=== PATIENT | female | born 1980 | race Two or more races ===

== ENCOUNTER → 2024-05-01 | Outpatient (CLI) | payer BC, SELFPAY ==
[2024-05-01 08:33] LABS: Basophils % (Auto) 1 % (0-2.5); Eosinophils # (Auto) 0.1 Thou/mm3 (0.0-0.5); Eosinophils % (Auto) 2 % (0-10); Hematocrit 39.1 % (36.0-46.0); Hemoglobin 12.9 g/dL (12.0-16.0); Immature Granulocytes % (Auto) 0 % (0-0); Immature Granulocytes Auto 0.01 Thou/mm3 (0.00-0.00); Lymphocytes # (Auto) 2.8 Thou/mm3 (1.0-4.8); Lymphocytes % (Auto) 42 % (10-50); Mean Corpuscular Volume 91 fL (80-100); Monocytes # (Auto) 0.5 Thou/mm3 (0.0-0.8); Monocytes % (Auto) 7 % (0-12); Neutrophils # (Auto) 3.3 Thou/mm3 (1.8-7.7); Neutrophils % (Auto) 49 % (37-80); Nucleated Red Blood Cell % 0 /100 WBC (0); Platelet Count 263 Thou/mm3 (140-440); RDW Standard Deviation 42.5 fL (36.4-46.3); White Blood Count 6.7 Thou/mm3 (3.6-11.0)
[2024-05-01 09:09] LABS: Glucose Estimated Average 186 mg/dL (80-131); Hemoglobin A1C 8.1 % Hgb (4.8-6.0)
[2024-05-01 09:18] LABS: Vitamin B12 548 pg/mL (211-911); Vitamin D 25 Hydroxy Total 28.8 ng/mL (7.3-40.2)
[2024-05-01 09:27] LABS: Alanine Aminotransferase 62 U/L (10-49); Albumin, Serum 5.1 gm/dL (3.5-5.0); Albumin/Globulin Ratio 2.1 (1.2-2.2); Alkaline Phosphatase 90 U/L (46-116); Anion Gap 7 (7-16); Aspartate Amino Transferase 34 U/L (0-34); BUN/Creatinine Ratio 16 Ratio (12-20); Bilirubin,Total 0.5 mg/dL (0.3-1.2); Blood Urea Nitrogen 13 mg/dL (9-23); Calcium 9.9 mg/dL (8.3-10.6); Calcium (Corrected) 9.9 mg/dL (8.5-10.1); Carbon Dioxide 28.3 mMol/L (20.0-31.0); Cardiac Risk Estimate 3.7 RATIO (3.7-5.6); Chloride 100 mMol/L (98-107); Cholesterol 232 mg/dL (132-200); Creatinine (Component) 0.8 mg/dL (0.6-1.3); Free T4 (Free Thyroxine) 1.41 ng/dL (0.89-1.76); Globulin 2.4 gm/dL (2.3-3.5); Glucose 171 mg/dL (74-106); HDL Cholesterol 63 mg/dL (40-60); LDL Cholesterol,Calculated 143 mg/dL (0-130); Magnesium 1.9 mg/dL (1.6-2.6); Osmolality,Calculated 274 (275-295); Potassium 4.3 mMol/L (3.4-5.1); Sodium 135 mMol/L (136-145); Thyroid Stimulating Hormone 1.59 uIU/mL (0.55-4.78); Total Protein 7.5 gm/dL (5.7-8.2); Triglycerides 131 mg/dL (30-150); eGFR > 60 See Note
[2024-05-13 06:16] LABS: Immunoglobulin A 168 mg/dL (47-310); tTG Ab, IgA <1.0 U/mL
== END | disposition home or self-care (01) ==
PROVIDERS: PCP Internal Medicine; Referring Provider Internal Medicine; Visit Provider Internal Medicine
DX: Z00.00 Encounter for general adult medical examination without abnormal findings (principal); E55.9 Vitamin D deficiency, unspecified
CPT/HCPCS: 36415; 80053; 80061; 82306; 82607; 82784; 83036; 83735; 84439; 84443; 85025; 86364

== ENCOUNTER → 2024-05-02 | Outpatient (CLI) | payer BC, SELFPAY | END | disposition home or self-care (01) | PROVIDERS: Referring Provider Internal Medicine; Visit Provider Internal Medicine | DX: Z00.00 Encounter for general adult medical examination without abnormal findings (principal) | CPT/HCPCS: 87015; 87045; 87046; 87177; 87209; 87493; 87899 ==

== ENCOUNTER 2024-05-05 08:27 | Emergency (ER) | payer BC, SELFPAY ==
[2024-05-05 08:31] VITALS: BP 149/84; PULSE 82; RESP 17; TEMP 37.2; O2SAT 99; BMI 31.7
--- NOTE | 2024-05-05 08:32 | EKG_ITS ---
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
--- NOTE | 2024-05-05 08:46 | XR_ITS ---
Examination: PA lateral chest 2 views TECHNIQUE: Upright PA lateral chest 2 views Exam date and time: May 05, 2024 at 0857 hours INDICATIONS: Onset chest pain today FINDINGS: Normal heart size Lungs are clear. The osseous structures are intact IMPRESSION: No active disease
[2024-05-05 09:23] LABS: Basophils % (Auto) 0 % (0-2.5); Eosinophils # (Auto) 0.1 Thou/mm3 (0.0-0.5); Eosinophils % (Auto) 2 % (0-10); Hematocrit 39.3 % (36.0-46.0); Hemoglobin 13.1 g/dL (12.0-16.0); Immature Granulocytes % (Auto) 0 % (0-0); Immature Granulocytes Auto 0.02 Thou/mm3 (0.00-0.00); Lymphocytes # (Auto) 1.3 Thou/mm3 (1.0-4.8); Lymphocytes % (Auto) 19 % (10-50); Mean Corpuscular HGB Conc 33.3 g/dl (31.0-37.0); Mean Corpuscular Volume 90 fL (80-100); Monocytes # (Auto) 0.5 Thou/mm3 (0.0-0.8); Monocytes % (Auto) 7 % (0-12); Neutrophils # (Auto) 4.8 Thou/mm3 (1.8-7.7); Neutrophils % (Auto) 71 % (37-80); Nucleated Red Blood Cell % 0 /100 WBC (0); Platelet Count 192 Thou/mm3 (140-440); RDW Standard Deviation 41.8 fL (36.4-46.3); Red Blood Count 4.37 Miln/mm3 (4.00-5.20); White Blood Count 6.8 Thou/mm3 (3.6-11.0)
[2024-05-05 09:43] LABS: Alanine Aminotransferase 50 U/L (10-49); Albumin, Serum 4.9 gm/dL (3.5-5.0); Albumin/Globulin Ratio 1.8 (1.2-2.2); Alkaline Phosphatase 86 U/L (46-116); Anion Gap 8 (7-16); Aspartate Amino Transferase 23 U/L (0-34); BUN/Creatinine Ratio 13 Ratio (12-20); Bilirubin,Total 0.6 mg/dL (0.3-1.2); Blood Urea Nitrogen 9 mg/dL (9-23); Calcium 10.1 mg/dL (8.3-10.6); Calcium (Corrected) 10.1 mg/dL (8.5-10.1); Chloride 100 mMol/L (98-107); Creatinine (Component) 0.7 mg/dL (0.6-1.3); Estimated Creatinine Clearance 108.6 mL/min (>60); Globulin 2.7 gm/dL (2.3-3.5); Glucose 166 mg/dL (74-106); Lipase 33 U/L (12-53); Osmolality,Calculated 272 (275-295); Sodium 135 mMol/L (136-145); Total Protein 7.6 gm/dL (5.7-8.2); Troponin I < 0.002 ng/mL (0.0-0.045); eGFR > 60 See Note
[2024-05-05 09:49] LABS: HCG,Qualitative Serum Negative
--- NOTE | 2024-05-05 10:18 | CHAP ---
Patient expressed gratitude for visit and prayer.
--- NOTE | 2024-05-05 10:41 | PD.EDCHEST ---
ED Chest Pain RME/HPI General Chief Complaint: Chest Pain Stated Complaint: chest pain Time Seen by Provider: 05/05/24 08:29 Arrival date/time: 05/05/24 08:27 44-year-old female presents the emergency department complaints of chest pain patient reports symptoms ongoing since early this morning patient reports no fever nausea or vomiting patient does report pain worse with movement Limitations: no limitations Related Data Home Medications ?Medication ?Instructions ?Recorded ?Confirmed albuterol sulfate 90 mcg/actuation 1 - 2 puff inhalation BIDPRN PRN 10/30/12 04/09/23 aerosol inhaler (Proventil HFA) Wheezing ##0 metformin 500 mg tablet 500 mg PO TID 08/11/19 04/09/23 (Glucophage) amitriptyline 10 mg tablet 20 mg PO HS 04/09/23 04/09/23 buspirone 5 mg tablet 5 mg PO DAILY PRN Anxiety 04/09/23 04/09/23 loratadine 10 mg tablet 10 mg PO QDAY PRN Allergic Symptoms 04/09/23 04/09/23 sumatriptan succinate 50 mg tablet 50 mg PO Q2H PRN Migraine Headache 04/09/23 04/09/23 Allergies Allergy/AdvReac Type Severity Reaction Status Date / Time No Known Allergies Allergy Verified 04/10/23 07:54 Review of Systems Review of Systems Systems Reviewed: All systems reviewed, normal except as documented Constitutional Constitutional: Reports system reviewed and no additional complaints, except as documented, Denies fever(s) and Denies headache(s) Eyes Eyes: Reports system reviewed and no additional complaints, except as documented and Denies blurry vision ENT Ears, Nose, Mouth, and Throat: Reports system reviewed and no additional complaints, except as documented, Denies headache(s), Denies nasal congestion and Denies nasal discharge Cardiovascular Cardiovascular: Reports system reviewed and no additional complaints, except as documented, Reports chest pain, Denies dyspnea, Denies radiating jaw, neck or arm pain, Denies rapid heart rate and Denies slow heart rate Respiratory Respiratory: Reports system reviewed and no additional complaints, except as documented, Denies chest congestion, Denies cough and Denies dyspnea Gastrointestinal Gastrointestinal: Reports system reviewed and no additional complaints, except as documented and Denies abdominal pain Integumentary/Breasts Skin/Breast: Reports system reviewed and no additional complaints, except as documented and Denies rash Neurologic Neurologic: Reports system reviewed and no additional complaints, except as documented, Reports as per HPI and Denies headache(s) Past Medical History Past Medical History NEUROLOGIC: Positive Neurological Disorders and Migraine; Negative Seizures CARDIAC: Negative Cardiac Disorders or Congestive Heart Failure RESPIRATORY: Positive Asthma; Negative Chronic Obstructive Pulmonary Disease (COPD) GASTROINTESTINAL: Positive Gastrointestinal Disorders, Gastroesophageal Reflux Disease and Obesity; Negative Hepatitis GENITOURINARY: Negative Genitourinary Disorders or Renal Disease REPRODUCTIVE: Positive Endometriosis and Previous Pregnancies MUSCULOSKELETAL: Negative Musculoskeletal Disorders or Arthritis ENDOCRINE: Positive Endocrine Disorders and Diabetes Mellitus Type 2; Negative Diabetes Mellitus Type 1 HEMATOLOGIC: Negative Blood Disorders PSYCHO/SOCIAL: Positive Depression and Anxiety OTHER HISTORY: Positive Chicken Pox; Negative Hospitalization, Autoimmune Disease, Shingles, Falls, Blood Transfusions, Blood Transfusion Reaction, Anesthesia Reactions, Organ Transplant, Chemotherapy, Radiation Therapy, MRSA, Measles, Mumps or Cancer Family History FAMILY HISTORY: Positive Family Cardiac Disorders and Family Surgery; Negative Family Psychiatric Problems, Family Respiratory Disorders, Family Gastrointestinal Problems, Family Cancer or Family Anesthesia Reaction Surgical History SURGICAL: Negative Cardiac Surgery, Endocrine Surgery, Ear Surgery, Eye Surgery, Throat Surgery, Abdominal Surgery, Nephrectomy, Tubal Ligation, Section or Organ Transplant Social History SMOKING STATUS: Never smoker ED Exam General Limitations: Present no limitations General appearance: Present alert and in no apparent distress Head Head exam: Present atraumatic Eye Eye exam: Present normal appearance, PERRL and EOMI ENT ENT exam: Present normal exam, normal oropharynx and mucous membranes moist Neck Neck exam: Present normal inspection, full ROM and trachea midline Chest Chest inspection: Present normal inspection and symmetric chest wall rise Respiratory Respiratory exam: Present normal lung sounds bilaterally; Absent respiratory distress Cardiovascular Cardiovascular exam: Present regular rate, normal rhythm and normal heart sounds; Absent bradycardia, tachycardia, irregular rhythm or JVD Abdominal Exam Abdominal exam: Present soft and normal bowel sounds; Absent distention or tenderness Extremities Exam Extremities exam: Present normal inspection and full ROM Back Exam Back exam: Present normal inspection and full ROM Neurological Exam Neurological exam: Present alert, oriented X3 and CN II-XII intact Psychiatric Psychiatric exam: Present normal affect and normal mood Skin Skin exam: Present warm, dry, intact and normal color Course Quality Measures none Orders Category Date Time Status EKG (ED ONLY) *Do not use* NOW Care 05/05/24 08:32 Completed EKG (ED Only) Stat Exams 05/05/24 08:32 Draft XR chest 2V Stat Exams 05/05/24 08:46 Completed CBC Stat Lab 05/05/24 09:09 Completed Comprehensive Metabolic Panel Stat Lab 05/05/24 09:09 Completed HCG,Qualitative Serum Stat Lab 05/05/24 09:09 Completed Lipase Stat Lab 05/05/24 09:09 Completed Troponin I Stat Lab 05/05/24 09:09 Completed Vital Signs Vital signs: Vital Signs Temperature 98.9 F 05/05/24 08:31 Pulse Rate 82 05/05/24 08:31 Respiratory Rate 17 05/05/24 08:31 Blood Pressure 149/84 H 05/05/24 08:31 Pulse Oximetry (%) 99 05/05/24 08:31 Oxygen Delivery Method Room Air 05/05/24 08:31 02 sat 99% r/a wnl Procedures -ED EKG Interpretation #1: Date of EK05/05/24 Time of EK:49 Rate: 76 Interpretation: Interpreted by me EKG Impression: Normal sinus rhythm, No acute ST-T changes, No ectopy, No ischemic changes, Normal QRS, Normal intervals and Normal axis Chest Pain MDM Narrative MDM Narrative:: 44-year-old female presents the emergency department complaints of chest pain patient reports symptoms ongoing since early this morning patient reports no fever nausea or vomiting patient does report pain worse with movement On exam patient well-appearing patient does not appear ill or toxic in no acute distress Lab work chest x-ray EKG obtained No acute emergent findings noted chest x-ray no pneumonic infiltrates no acute pulmonary process EKG normal sinus rhythm Troponin within normal limits Heart score: 1 point Patient discharged home in no distress to follow-up with primary care doctor in the next 24 to 48 hours and for any worsening symptoms to return to the ER immediately Patient data External records reviewed:: [facility] previous records Clinical information provided by:: patient Social determinants that could affect healthcare access:: none Patient has the following chronic illnesses:: See history How is presenting disease/condition affected by chronic disease/condition?: uneffected by Evaluation data The following diagnostics were reviewed and interpreted by me:: lab results, radiology exam(s) and EKG tracing(s) Lab and/or radiology exams considered but not ordered:: Labs, radiology, EKG obtained Interpretation Summary: Reviewed by me Medications / Prescriptions Medications or Prescriptions considered but not ordered:: Given no meds Medication administrations:: No meds Consultations Consultation(s) initiated? (list below): No Diagnosis Chest Pain Differential Diagnosis: unstable angina pectoris, atypical chest pain, st elevation myocardial infarction, costochondritis and chest pain Most likely diagnosis given after review of the tests above:: Chest pain Admission Indicated Admission indicated?: not indicated Admission Request Was there a request for admission?: No Disposition Plan Disposition Plan: Discharge Discharge Attestation Discharge Attestation: The patient and all family members were given an opportunity to ask questions and understood the discharge instructions. Discharge instructions specifically effects, indications for sooner follow up or return to the emergency department, and the expected course of current diagnosis. Patient condition: Stable Discharge Plan Plan Patient Disposition: HOME (Self Care) Disposition Comment: Stable Prescriptions/Referrals Prescriptions/Med Rec: No Action albuterol sulfate [Proventil HFA] 6.7 GM HFA aerosol inhaler 1 - 2 puff Inhalation BIDPRN PRN (Reason: Wheezing) Qty: 0 metformin [Glucophage] 500 mg Tablet 500 mg PO TID buspirone 5 mg Tablet 5 mg PO DAILY MDD a PRN (Reason: Anxiety) sumatriptan succinate 50 mg Tablet 50 mg PO Q2H PRN (Reason: Migraine Headache) Rx Instructions: do not exceed 4 doses per 24 hrs amitriptyline 10 mg Tablet 20 mg PO HS loratadine 10 mg Tablet 10 mg PO QDAY PRN (Reason: Allergic Symptoms) Referrals: Jone Singer MD [Primary Care Provider] - 05/06/24 Problem List Clinical Impression: Chest pain, non-cardiac Patient/Caregiver Discharge Instructions Education Materials: ED Chest Pain, Noncardiac Additional Instructions: Please follow up with your primary care doctor in the next 24-48hrs for any worsening symptoms return here immediately Print Language: Mosotho Stand Alone Forms: Morenita Award Info., Work/School Release, Patient Portal Info Letter Attestation Attestation The patient was seen by the midlevel practitioner. I, the co-signing physician, was present during the entire ER visit. While I did not physically examine the patient, I was available for consultation as needed.
== END 2024-05-05 11:18 | disposition home or self-care (01) ==
PROVIDERS: Nurse Practitioner Primary Care; Emergency Provider Emergency Medicine; PCP Internal Medicine
DX: R07.89 Other chest pain (principal)
CPT/HCPCS: 36415; 71046; 80053; 83690; 84484; 84703; 85025; 93005; 99283

== ENCOUNTER → 2024-07-21 | Outpatient (CLI) | payer BC, SELFPAY ==
[2024-07-21 08:04] LABS: Misc Send Out* See Sep Rpt
[2024-07-21 08:49] LABS: Basophils % (Auto) 1 % (0-2.5); Eosinophils # (Auto) 0.1 Thou/mm3 (0.0-0.5); Eosinophils % (Auto) 2 % (0-10); Hematocrit 41.1 % (36.0-46.0); Hemoglobin 13.5 g/dL (12.0-16.0); Immature Granulocytes % (Auto) 0 % (0-0); Immature Granulocytes Auto 0.01 Thou/mm3 (0.00-0.00); Lymphocytes # (Auto) 2.7 Thou/mm3 (1.0-4.8); Lymphocytes % (Auto) 48 % (10-50); Mean Corpuscular HGB Conc 32.8 g/dl (31.0-37.0); Mean Corpuscular Hemoglobin 29.5 pg (25.0-35.0); Mean Corpuscular Volume 90 fL (80-100); Monocytes # (Auto) 0.4 Thou/mm3 (0.0-0.8); Monocytes % (Auto) 6 % (0-12); Neutrophils # (Auto) 2.4 Thou/mm3 (1.8-7.7); Neutrophils % (Auto) 43 % (37-80); Nucleated Red Blood Cell % 0 /100 WBC (0); Platelet Count 250 Thou/mm3 (140-440); RDW Standard Deviation 41.1 fL (36.4-46.3); Red Blood Count 4.58 Miln/mm3 (4.00-5.20); White Blood Count 5.6 Thou/mm3 (3.6-11.0)
[2024-07-21 08:52] LABS: Alanine Aminotransferase 44 U/L (10-49); Albumin, Serum 4.7 gm/dL (3.5-5.0); Albumin/Globulin Ratio 1.8 (1.2-2.2); Alkaline Phosphatase 83 U/L (46-116); Anion Gap 9 (7-16); Aspartate Amino Transferase 24 U/L (0-34); BUN/Creatinine Ratio 23 Ratio (12-20); Bilirubin,Total 0.5 mg/dL (0.3-1.2); Blood Urea Nitrogen 16 mg/dL (9-23); Calcium 9.9 mg/dL (8.3-10.6); Calcium (Corrected) 9.9 mg/dL (8.5-10.1); Carbon Dioxide 26.3 mMol/L (20.0-31.0); Chloride 108 mMol/L (98-107); Creatinine (Component) 0.7 mg/dL (0.6-1.3); Globulin 2.6 gm/dL (2.3-3.5); Glucose 124 mg/dL (74-106); Osmolality,Calculated 287 (275-295); Potassium 4.1 mMol/L (3.4-5.1); Sodium 143 mMol/L (136-145); Total Protein 7.3 gm/dL (5.7-8.2); eGFR > 60 See Note
[2024-07-21 09:13] LABS: Sed Rate (ESR) 16 mm/hr (0-20)
[2024-07-29 07:00] LABS: Calprotectin, Stool* 21 mcg/g
[2024-07-29 07:06] LABS: Immunoglobulin A 167 mg/dL (47-310); hs-CRP* 0.3 mg/L; tTG Ab, IgA <1.0 U/mL
== END | disposition home or self-care (01) ==
PROVIDERS: PCP Internal Medicine; Referring Provider Specialist; Visit Provider Specialist
DX: K52.9 Noninfective gastroenteritis and colitis, unspecified (principal)
CPT/HCPCS: 36415; 80053; 82784; 83993; 85025; 85652; 86141; 86364

== ENCOUNTER 2024-08-01 09:05 | Day surgery (SDC) | payer BC, SELFPAY ==
--- NOTE | 2024-07-31 10:44 | EKG_ITS ---
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
[2024-07-31 12:19] LABS: HCG,Qualitative Serum Negative
[2024-07-31 12:23] LABS: Alanine Aminotransferase 51 U/L (10-49); Albumin, Serum 4.8 gm/dL (3.5-5.0); Albumin/Globulin Ratio 1.7 (1.2-2.2); Alkaline Phosphatase 72 U/L (46-116); Anion Gap 10 (7-16); Aspartate Amino Transferase 29 U/L (0-34); BUN/Creatinine Ratio 20 Ratio (12-20); Bilirubin,Total 0.4 mg/dL (0.3-1.2); Blood Urea Nitrogen 12 mg/dL (9-23); Calcium 9.9 mg/dL (8.3-10.6); Calcium (Corrected) 9.9 mg/dL (8.5-10.1); Carbon Dioxide 26.9 mMol/L (20.0-31.0); Chloride 103 mMol/L (98-107); Creatinine (Component) 0.6 mg/dL (0.6-1.3); Globulin 2.8 gm/dL (2.3-3.5); Glucose 103 mg/dL (74-106); Osmolality,Calculated 279 (275-295); Potassium 4.2 mMol/L (3.4-5.1); Sodium 140 mMol/L (136-145); Total Protein 7.6 gm/dL (5.7-8.2); eGFR > 60 See Note
[2024-07-31 12:25] LABS: Partial Thromboplastin Time 26.5 Seconds (22.0-36.0); Prothrombin Time 10.9 Seconds (9.0-12.2)
[2024-07-31 13:44] VITALS: BMI 29.2
[2024-08-01 09:26] VITALS: BP 132/80; PULSE 68; RESP 16; TEMP 36.2; O2SAT 97
[2024-08-01 09:32] VITALS: BMI 29.3
[2024-08-01] MEDS: SODIUM CHLORIDE 0.9% 500 ML 500 ML 20 ML IV (09:37)
[2024-08-01 09:40] VITALS: BP 133/80; PULSE 70; RESP 19; O2SAT 100
[2024-08-01 10:11] VITALS: BP 120/69; PULSE 76; RESP 24; TEMP 36.4; O2SAT 96
[2024-08-01 10:21] VITALS: BP 108/74; PULSE 72; RESP 17; O2SAT 95
[2024-08-01 10:31] VITALS: BP 122/77; PULSE 63; RESP 19; O2SAT 96
[2024-08-01 10:41] VITALS: BP 115/76; PULSE 62; RESP 18; O2SAT 96
== END 2024-08-01 10:55 | disposition home or self-care (01) ==
PROVIDERS: Anesthesiology; PCP Internal Medicine; Referring Provider Specialist; Visit Provider Specialist
PROC: 0DBE8ZX Excision of Large Intestine, Via Natural or Artificial Opening Endoscopic, Diagnostic (ICD-10-PCS; CPT 45380; principal; 2024-08-01 14:45)
DX: K52.9 Noninfective gastroenteritis and colitis, unspecified (principal); Z01.810 Encounter for preprocedural cardiovascular examination; K63.89 Other specified diseases of intestine; K62.89 Other specified diseases of anus and rectum; D12.8 Benign neoplasm of rectum; K64.9 Unspecified hemorrhoids; K57.30 Diverticulosis of large intestine without perforation or abscess without bleeding
CPT/HCPCS: 45385; 45380; 36415; 80053; 84703; 85610; 85730; 93005; A4649; J7040

== ENCOUNTER 2024-09-23 19:23 | Emergency (ER) | payer BC, SELFPAY ==
[2024-09-23 19:23] VITALS: BMI 28.6
--- NOTE | 2024-09-23 19:32 | XR_ITS ---
Examination: Toes, right foot first digit 3 views Technique: Toes AP oblique lateral 3 views first digit 3 views Date and time of exam: September 23, 20241 hrs. Indications: Injury with today with third digit pain. Findings: Soft tissue swelling about the first digit No acute fracture No dislocation Impression: No acute fracture
[2024-09-23 20:29] VITALS: BP 157/83; PULSE 68; RESP 18; TEMP 36.4; O2SAT 97
--- NOTE | 2024-09-23 21:46 | PC.NURSE ---
pts great toe cleaned and irrigated with 500cc normal saline
--- NOTE | 2024-09-23 23:37 | PD.EDANKLE ---
Lower Extremity Injury RME/HPI General Chief Complaint: Ankle/Foot Injury Stated Complaint: RIGHT BIG TOE PAIN Time Seen by Provider: 09/23/24 20:32 Arrival date/time: 09/23/24 19:23 44-year-old female presents to the ED with a complaint of right great toe pain secondary to dropping a heavy potted plant on the toe while she was gardening. This injury caused the toenail to pop up. She denies any numbness or tingling distally. Her last tetanus was in July 2018. She denies any other injuries at this time. Mode of arrival: ambulatory Limitations: no limitations Related Data Home Medications ?Medication ?Instructions ?Recorded ?Confirmed albuterol sulfate 90 mcg/actuation 1 - 2 puff inhalation BIDPRN PRN 10/30/12 08/01/24 aerosol inhaler (Proventil HFA) Wheezing ##0 metformin 500 mg tablet 500 mg PO TID 08/11/19 08/01/24 (Glucophage) amitriptyline 10 mg tablet 20 mg PO HS 04/09/23 08/01/24 buspirone 5 mg tablet 5 mg PO DAILY PRN Anxiety 04/09/23 08/01/24 loratadine 10 mg tablet 10 mg PO QDAY PRN Allergic Symptoms 04/09/23 08/01/24 sumatriptan succinate 50 mg tablet 50 mg PO Q2H PRN Migraine Headache 04/09/23 08/01/24 atorvastatin 20 mg tablet 20 mg PO QDAY 07/31/24 08/01/24 cyclobenzaprine 10 mg tablet 10 mg PO Q12H PRN muscle spasm 07/31/24 08/01/24 Held on 08/01/24. Instructions: Resume on 08/02/24. semaglutide 0.25 mg or 0.5 mg (2 0.5 mg subcut QWEEK 07/31/24 08/01/24 mg/3 mL) subcutaneous pen injector (Ozempic) Previous Rx's ?Medication ?Instructions ?Recorded cephalexin 500 mg capsule 500 mg PO BID #14 caps 09/23/24 Allergies Allergy/AdvReac Type Severity Reaction Status Date / Time No Known Allergies Allergy Verified 08/01/24 09:19 Review of Systems Review of Systems Systems Reviewed: All systems reviewed, normal except as documented Past Medical History Past Medical History NEUROLOGIC: Positive Neurological Disorders and Migraine; Negative Seizures CARDIAC: Positive Cardiac Disorders and Hypercholesterolemia; Negative Congestive Heart Failure RESPIRATORY: Positive Asthma (ALLERGY INDUCED); Negative Chronic Obstructive Pulmonary Disease (COPD) GASTROINTESTINAL: Positive Gastrointestinal Disorders (DIARRHEA, NAUSEA), Gastroesophageal Reflux Disease and Obesity; Negative Hepatitis GENITOURINARY: Negative Genitourinary Disorders or Renal Disease REPRODUCTIVE: Positive Endometriosis and Previous Pregnancies MUSCULOSKELETAL: Negative Musculoskeletal Disorders or Arthritis ENDOCRINE: Positive Endocrine Disorders and Diabetes Mellitus Type 2; Negative Diabetes Mellitus Type 1 HEMATOLOGIC: Negative Blood Disorders PSYCHO/SOCIAL: Positive Depression and Anxiety OTHER HISTORY: Positive Chicken Pox; Negative Hospitalization, Autoimmune Disease, Shingles, Falls, Blood Transfusions, Anesthesia Reactions, Organ Transplant, Chemotherapy, Radiation Therapy, MRSA, Measles, Mumps or Cancer Family History FAMILY HISTORY: Positive Family Cardiac Disorders and Family Surgery; Negative Family Psychiatric Problems, Family Respiratory Disorders, Family Gastrointestinal Problems, Family Cancer or Family Anesthesia Reaction Surgical History SURGICAL: Positive Hysterectomy; Negative Cardiac Surgery, Endocrine Surgery, Ear Surgery, Eye Surgery, Throat Surgery, Abdominal Surgery, Nephrectomy, Tubal Ligation, Section or Organ Transplant Social History SMOKING STATUS: Never smoker ED Exam Narrative Physical exam: Alert and oriented 44-year-old female, no acute distress. Lungs are clear, regular rate and rhythm without murmurs, right great toe with tenderness and nail avulsion. General Limitations: Present no limitations Course Course Course Narrative: 44-year-old female presents to the ED with a complaint of right great toe pain secondary to dropping a heavy potted plant on the toe while she was gardening. This injury caused the toenail to pop up. She denies any numbness or tingling distally. Her last tetanus was in July 2018. She denies any other injuries at this time. Alert and oriented 44-year-old female, no acute distress. Lungs are clear, regular rate and rhythm without murmurs, right great toe with tenderness and nail avulsion. Quality Measures none Orders Category Date Time Status XR toe RT min 2V Stat Exams 09/23/24 19:32 Completed Vital Signs Vital signs: Vital Signs Temperature 97.5 F 09/23/24 20:29 Pulse Rate 68 09/23/24 20:29 Respiratory Rate 18 09/23/24 20:29 Blood Pressure 157/83 H 09/23/24 20:29 Pulse Oximetry (%) 97 09/23/24 20:29 Oxygen Delivery Method Room Air 09/23/24 20:29 Extremity Injury, Lower MDM Narrative MDM Narrative:: 44-year-old female presents to the ED with a complaint of right great toe pain secondary to dropping a heavy potted plant on the toe while she was gardening. This injury caused the toenail to pop up. She denies any numbness or tingling distally. Her last tetanus was in July 2018. She denies any other injuries at this time. Alert and oriented 44-year-old female, no acute distress. Lungs are clear, regular rate and rhythm without murmurs, right great toe with tenderness and nail avulsion. Patient data External records reviewed:: None Clinical information provided by:: patient Social determinants that could affect healthcare access:: none Patient has the following chronic illnesses:: N/A How is presenting disease/condition affected by chronic disease/condition?: uneffected by Evaluation data The following diagnostics were reviewed and interpreted by me:: radiology exam(s) Lab and/or radiology exams considered but not ordered:: N/A Interpretation Summary: XR Toe: Findings: Soft tissue swelling about the first digit No acute fracture No dislocation Impression: No acute fracture Medications / Prescriptions Medications or Prescriptions considered but not ordered:: N/A Medication administrations:: N/A Consultations Consultation(s) initiated? (list below): No Diagnosis Extremity Injury, Lower Differential Diagnosis: puncture wound of foot, fracture of toe and ankle fracture Most likely diagnosis given after review of the tests above:: Great toe to crush injury with nail avulsion. Admission Indicated Admission indicated?: not indicated Explain why admission is indicated or not indicated:: Patient is stable for discharge Admission Request Was there a request for admission?: No Disposition Plan Disposition Plan: Discharge Discharge Attestation Discharge Attestation: The patient and all family members were given an opportunity to ask questions and understood the discharge instructions. Discharge instructions specifically effects, indications for sooner follow up or return to the emergency department, and the expected course of current diagnosis. Patient condition: Stable Discharge Plan Plan Patient Disposition: HOME (Self Care) Discharge Disposition comment: Stable and improved Prescriptions/Referrals Prescriptions/Med Rec: New cephalexin 500 mg capsule 500 mg PO BID Qty: 14 0RF No Action albuterol sulfate [Proventil HFA] 6.7 GM HFA aerosol inhaler 1 - 2 puff Inhalation BIDPRN PRN (Reason: Wheezing) Qty: 0 metformin [Glucophage] 500 mg Tablet 500 mg PO TID buspirone 5 mg Tablet 5 mg PO DAILY MDD a PRN (Reason: Anxiety) sumatriptan succinate 50 mg Tablet 50 mg PO Q2H PRN (Reason: Migraine Headache) Rx Instructions: do not exceed 4 doses per 24 hrs amitriptyline 10 mg Tablet 20 mg PO HS loratadine 10 mg Tablet 10 mg PO QDAY PRN (Reason: Allergic Symptoms) cyclobenzaprine 10 mg tablet 10 mg PO Q12H PRN (Reason: muscle spasm) Patient Comments: TAKE 1 TABLET BY MOUTH TWICE A DAY NEEDED atorvastatin 20 mg tablet 20 mg PO QDAY Patient Comments: TAKE 1 TABLET BY MOUTH EVERY DAY Ozempic 0.25 mg or 0.5 mg (2 mg/3 mL) pen injector 0.5 mg SUBCUT QWEEK Referrals: No Primary/Family,Physician [Primary Care Provider] - In 1 week Problem List Clinical Impression: Avulsion of toenail of right foot, Crush injury of toe Patient/Caregiver Discharge Instructions Education Materials: ED Crush Injury, Foot/Toe, ED Detached Fingernail or Toenail Additional Instructions: Follow-up with your primary care physician in 24 to 48 hours. Return to the ED for any new or worsening symptoms. Print Language: Vietnamese Stand Alone Forms: Morenita Award Info., Patient Portal Info Letter PA/GIOVANNY Supervising Physician PA/GIOVANNY Supervising Physician: Dr Brown
== END 2024-09-23 23:52 | disposition home or self-care (01) ==
PROVIDERS: Emergency Provider Emergency Medicine
DX: S91.204A Unspecified open wound of right lesser toe(s) with damage to nail, initial encounter (principal); W20.8XXA Other cause of strike by thrown, projected or falling object, initial encounter; Y93.H2 Activity, gardening and landscaping
CPT/HCPCS: 73660; 99283

== ENCOUNTER 2024-11-18 15:56 | Emergency (ER) | payer BC, SELFPAY ==
[2024-11-18 15:57] VITALS: BMI 29.0
[2024-11-18 16:07] VITALS: BP 148/80; PULSE 88; RESP 20; TEMP 37; O2SAT 96
--- NOTE | 2024-11-18 16:31 | PD.EDURI ---
Upper Respiratory Inf. RME/HPI General Chief Complaint: Flu Like Symptoms Stated Complaint: SORE THROAT x 4 DAYS, DIFF BREATHING/COUGH x 2 DAY Time Seen by Provider: 11/18/24 16:01 Source: patient Arrival date/time: 11/18/24 15:56 44-year-old female with a history of hyperlipidemia, hypertension, type 2 diabetes presents to the emergency room with a chief complaint of sore throat cough and congestion x 4 days Mode of arrival: ambulatory Limitations: no limitations Related Data Home Medications ?Medication ?Instructions ?Recorded ?Confirmed albuterol sulfate 90 mcg/actuation 1 - 2 puff inhalation BIDPRN PRN 10/30/12 08/01/24 aerosol inhaler (Proventil HFA) Wheezing ##0 metformin 500 mg tablet 500 mg PO TID 08/11/19 08/01/24 (Glucophage) amitriptyline 10 mg tablet 20 mg PO HS 04/09/23 08/01/24 buspirone 5 mg tablet 5 mg PO DAILY PRN Anxiety 04/09/23 08/01/24 loratadine 10 mg tablet 10 mg PO QDAY PRN Allergic Symptoms 04/09/23 08/01/24 sumatriptan succinate 50 mg tablet 50 mg PO Q2H PRN Migraine Headache 04/09/23 08/01/24 atorvastatin 20 mg tablet 20 mg PO QDAY 07/31/24 08/01/24 cyclobenzaprine 10 mg tablet 10 mg PO Q12H PRN muscle spasm 07/31/24 08/01/24 Held on 08/01/24. Instructions: Resume on 08/02/24. semaglutide 0.25 mg or 0.5 mg (2 0.5 mg subcut QWEEK 07/31/24 08/01/24 mg/3 mL) subcutaneous pen injector (Ozempic) Previous Rx's ?Medication ?Instructions ?Recorded cephalexin 500 mg capsule 500 mg PO BID #14 caps 09/23/24 prednisone 20 mg tablet 40 mg (2 x 20 mg) PO QDAY 4 days 11/18/24 #8 tabs Allergies Allergy/AdvReac Type Severity Reaction Status Date / Time No Known Allergies Allergy Verified 08/01/24 09:19 Review of Systems Review of Systems Systems Reviewed: All systems reviewed, normal except as documented Constitutional Constitutional: Reports system reviewed and no additional complaints, except as documented, Denies fatigue, Reports fever(s), Denies headache(s) and Reports weakness Eyes Eyes: Reports system reviewed and no additional complaints, except as documented, Denies blurry vision and Denies change in vision ENT Ears, Nose, Mouth, and Throat: Reports system reviewed and no additional complaints, except as documented, Denies otalgia, Denies headache(s), Denies nasal congestion, Denies throat swelling and Denies vertigo Cardiovascular Cardiovascular: Reports system reviewed and no additional complaints, except as documented, Denies chest pain, Reports dyspnea and Denies dyspnea on exertion Respiratory Respiratory: Reports system reviewed and no additional complaints, except as documented, Reports chest congestion, Reports cough, Reports dyspnea, Denies dyspnea on exertion and Denies wheezing Gastrointestinal Gastrointestinal: Reports system reviewed and no additional complaints, except as documented, Denies abdominal pain, Denies cramping, Denies nausea and Denies vomiting Genitourinary Genitourinary: Reports system reviewed and no additional complaints, except as documented Musculoskeletal Musculoskeletal: Reports system reviewed and no additional complaints, except as documented and Denies back pain Integumentary/Breasts Skin/Breast: Reports system reviewed and no additional complaints, except as documented and Denies wounds Neurologic Neurologic: Reports system reviewed and no additional complaints, except as documented, Denies confusion, Denies headache(s), Denies lack of coordination, Denies vertigo and Reports weakness Psychiatric Psychiatric: Reports system reviewed and no additional complaints, except as documented, Denies anxiety, Denies confusion, Denies depression, Denies paranoia, Denies suicidal ideation and Denies tactile hallucinations Endocrine Endocrine: Reports system reviewed and no additional complaints, except as documented and Denies fatigue Hematologic/Lymphatic Hematologic/Lymphatic: Reports system reviewed and no additional complaints, except as documented and Denies lymphadenopathy Allergic/Immunologic Allergic/Immunologic: Reports system reviewed and no additional complaints, except as documented, Denies throat swelling, Denies urticaria and Denies wheezing Past Medical History Past Medical History NEUROLOGIC: Positive Neurological Disorders and Migraine; Negative Seizures CARDIAC: Positive Cardiac Disorders and Hypercholesterolemia; Negative Congestive Heart Failure RESPIRATORY: Positive Asthma (ALLERGY INDUCED); Negative Chronic Obstructive Pulmonary Disease (COPD) GASTROINTESTINAL: Positive Gastrointestinal Disorders (DIARRHEA, NAUSEA), Gastroesophageal Reflux Disease and Obesity; Negative Hepatitis GENITOURINARY: Negative Genitourinary Disorders or Renal Disease REPRODUCTIVE: Positive Endometriosis and Previous Pregnancies MUSCULOSKELETAL: Negative Musculoskeletal Disorders or Arthritis ENDOCRINE: Positive Endocrine Disorders and Diabetes Mellitus Type 2; Negative Diabetes Mellitus Type 1 HEMATOLOGIC: Negative Blood Disorders PSYCHO/SOCIAL: Positive Depression and Anxiety OTHER HISTORY: Positive Chicken Pox; Negative Hospitalization, Autoimmune Disease, Shingles, Falls, Blood Transfusions, Anesthesia Reactions, Organ Transplant, Chemotherapy, Radiation Therapy, MRSA, Measles, Mumps or Cancer Family History FAMILY HISTORY: Positive Family Cardiac Disorders and Family Surgery; Negative Family Psychiatric Problems, Family Respiratory Disorders, Family Gastrointestinal Problems, Family Cancer or Family Anesthesia Reaction Surgical History SURGICAL: Positive Hysterectomy; Negative Cardiac Surgery, Endocrine Surgery, Ear Surgery, Eye Surgery, Throat Surgery, Abdominal Surgery, Nephrectomy, Tubal Ligation, Section or Organ Transplant Social History SMOKING STATUS: Never smoker ED Exam General Limitations: Present no limitations General appearance: Present alert and in no apparent distress Head Head exam: Present atraumatic Eye Eye exam: Present normal appearance, PERRL and EOMI ENT ENT exam: Present normal exam, normal oropharynx and mucous membranes moist Neck Neck exam: Present normal inspection, full ROM and trachea midline Chest Chest inspection: Present normal inspection and symmetric chest wall rise Respiratory Respiratory exam: Present normal lung sounds bilaterally; Absent respiratory distress, wheezes, stridor, accessory muscle use or prolonged expiratory phase Cardiovascular Cardiovascular exam: Present regular rate, normal rhythm and normal heart sounds; Absent tachycardia Abdominal Exam Abdominal exam: Present soft and normal bowel sounds; Absent tenderness Extremities Exam Extremities exam: Present normal inspection and full ROM Back Exam Back exam: Present normal inspection and full ROM Neurological Exam Neurological exam: Present alert, oriented X3 and CN II-XII intact Psychiatric Psychiatric exam: Present normal affect and normal mood Skin Skin exam: Present warm, dry, intact and normal color Course Quality Measures none Vital Signs Vital signs: Vital Signs Temperature 98.6 F 11/18/24 16:07 Pulse Rate 88 11/18/24 16:07 Respiratory Rate 20 11/18/24 16:07 Blood Pressure 148/80 H 11/18/24 16:07 Pulse Oximetry (%) 96 11/18/24 16:07 Oxygen Delivery Method Room Air 11/18/24 16:07 O2 saturation 96% within normal limits Upper Respiratory Infection MDM Narrative MDM Narrative:: 44-year-old female with a history of hyperlipidemia, hypertension, type 2 diabetes presents to the emergency room with a chief complaint of sore throat cough and congestion x 4 days Patient is hemodynamically stable and in no apparent distress Physical examination shows clear bilateral lung sounds there is no wheezing stridor or any abnormal breath sounds. The patient is afebrile not tachycardic not tachypneic and her O2 saturation is 96% on room air Patient was seen by her primary care provider and is on Augmentin medication for pneumonia. I spoke to the patient and told her that she is on the appropriate antibiotics and treatment. The patient has only been taking antibiotics for 2 days. The patient also has an inhaler. The only thing that I added to the patient's regimen was steroids for 3 days Patient was discharged and educated to follow-up with primary care provider in the next 24 to 48 hours and return to the emergency room for any evidence of worsening signs or symptoms Patient data External records reviewed:: [facility] previous records Clinical information provided by:: patient Social determinants that could affect healthcare access:: none Patient has the following chronic illnesses:: No chronic illness How is presenting disease/condition affected by chronic disease/condition?: no chronic disease Evaluation data The following diagnostics were reviewed and interpreted by me:: lab results and radiology exam(s) Lab and/or radiology exams considered but not ordered:: Labs and radiology exams considered and ordered Interpretation Summary: N/A Medications / Prescriptions Medications or Prescriptions considered but not ordered:: Rx given Medication administrations:: Rx given Consultations Consultation(s) initiated? (list below): No Diagnosis Upper Respiratory Differential Diagnosis: upper respiratory infection, viral infection, bronchitis, influenza, pharyngitis and other Most likely diagnosis given after review of the tests above:: Community-acquired pneumonia Admission Indicated Admission indicated?: not indicated Admission Request Was there a request for admission?: No Disposition Plan Disposition Plan: Discharge Discharge Attestation Discharge Attestation: The patient and all family members were given an opportunity to ask questions and understood the discharge instructions. Discharge instructions specifically effects, indications for sooner follow up or return to the emergency department, and the expected course of current diagnosis. Patient condition: Stable Discharge Plan Plan Patient Disposition: HOME (Self Care) Discharge Disposition comment: Stable Prescriptions/Referrals Prescriptions/Med Rec: New prednisone 20 mg tablet 40 mg PO QDAY 4 Days Qty: 8 0RF No Action albuterol sulfate [Proventil HFA] 6.7 GM HFA aerosol inhaler 1 - 2 puff Inhalation BIDPRN PRN (Reason: Wheezing) Qty: 0 metformin [Glucophage] 500 mg Tablet 500 mg PO TID buspirone 5 mg Tablet 5 mg PO DAILY MDD a PRN (Reason: Anxiety) sumatriptan succinate 50 mg Tablet 50 mg PO Q2H PRN (Reason: Migraine Headache) Rx Instructions: do not exceed 4 doses per 24 hrs amitriptyline 10 mg Tablet 20 mg PO HS loratadine 10 mg Tablet 10 mg PO QDAY PRN (Reason: Allergic Symptoms) cephalexin 500 mg capsule 500 mg PO BID Qty: 14 0RF cyclobenzaprine 10 mg tablet 10 mg PO Q12H PRN (Reason: muscle spasm) Patient Comments: TAKE 1 TABLET BY MOUTH TWICE A DAY NEEDED atorvastatin 20 mg tablet 20 mg PO QDAY Patient Comments: TAKE 1 TABLET BY MOUTH EVERY DAY Ozempic 0.25 mg or 0.5 mg (2 mg/3 mL) pen injector 0.5 mg SUBCUT QWEEK Problem List Clinical Impression: Community acquired pneumonia Patient/Caregiver Discharge Instructions Education Materials: ED Pneumonia (Adult) Additional Instructions: Please follow-up with your primary care provider in the next 24 to 48 hours You are on the correct antibiotics to help you with your pneumonia. Please continue to take the antibiotics that were prescribed by your primary care provider. You also have an inhaler to help you with your symptoms. I am going to send over 3 days of steroids to help open up your lungs and help you with your symptoms. For any evidence of worsening signs or symptoms return to the emergency room immediately Print Language: Palauan Stand Alone Forms: [facility] Award Info., Patient Portal Info Letter PA/GIOVANNY Supervising Physician PA/GIOVANNY Supervising Physician: Dr. Barakat
== END 2024-11-18 17:18 | disposition home or self-care (01) ==
LOC: SERX 16:16
PROVIDERS: Emergency Provider Family Medicine; PCP Internal Medicine
DX: J18.9 Pneumonia, unspecified organism (principal)
CPT/HCPCS: 99281

== ENCOUNTER → 2025-02-19 | Outpatient (CLI) | payer OTHER, SELFPAY ==
--- NOTE | 2025-02-19 09:45 | XR_ITS ---
Examination: Screening digital mammography, bilateral Computer aided detection 3-D breast Tomosynthesis, bilateral Date and time of exam: February 19, 2025 0945 hours Comparison August 10, 2022 Indication: Screening Technique: Nonmagnified MLO, CC views of the breasts to been obtained, reconstructed from 3-D Tomosynthesis images. R2 computer aided detection program utilized for evaluation of suspicious masses and/or abnormal calcifications. 3-D Tomosynthesis images obtained. Findings: Scattered areas of fibroglandular density Benign calcifications. No interval suspicious masses Impression: BI-RADS category II: Benign Findings. Recommend 1 year follow-up mammogram.
== END | disposition home or self-care (01) ==
PROVIDERS: PCP Internal Medicine; Referring Provider Internal Medicine; Visit Provider Internal Medicine
DX: Z12.31 Encounter for screening mammogram for malignant neoplasm of breast (principal); R92.323 Mammographic fibroglandular density, bilateral breasts
CPT/HCPCS: 77063; 77067